=== PATIENT | male | born 1945 | race Caucasian/White ===

== ENCOUNTER 2016-10-28 21:59 | Inpatient (IN) | END 2016-11-03 13:15 | disposition home or self-care (01) | DRG 193 | LOC: ED 21:59 → ICU 10-29 03:32 | PROVIDERS: ADMIT Internal Medicine; ATTEND Internal Medicine ==

== ENCOUNTER 2021-05-16 14:39 | Inpatient (IN) ==
--- NOTE | 2021-05-16 14:42 | Emergency Department Note ---
HPI General Chief complaint: Rectal Bleed Stated complaint: Dark stools Time Seen by Provider: 05/16/21 14:42 Source: patient, family and old records reviewed Mode of arrival: wheelchair Limitations: no limitations History of Present Illness HPI Narrative: 75-year-old male with past medical history of bladder cancer and right nephrostomy tube, afib on warfarin, and CKD presenting with dark stools. Patient states his stools have been dark for the past few days. Over the last 2 weeks he has also had multiple falls and was seen in the emergency department on 05/08/2021. He had a CT of the brain which showed no acute findings and a CT of the abdomen which showed the known bladder CA and also a retroperitoneal soft tissue mass. Patient has not taken his warfarin in a few days because his last INR was 5.0. Patient endorses generalized weakness but has no other complaints at this time. Denies chest pain, shortness of breath, abdominal pain, or vomiting. He is currently on Levaquin for UTI. Denies any prior history of GI bleeding. No known history of cirrhosis or alcohol abuse. No recent increased NSAID use or steroids. Related Data Home Medications Medication Instructions Recorded Confirmed atorvastatin 40 mg tablet 80 mg PO HS 11/21/15 05/16/21 chlorthalidone 25 mg tablet 25 mg PO QDAY 10/08/20 05/16/21 metoprolol succinate 25 mg 25 mg PO QDAY 10/08/20 05/16/21 tablet,extended release 24 hr spironolactone 25 mg tablet 25 mg PO QDAY 10/08/20 05/16/21 Previous Rx's Medication Instructions Recorded digoxin 125 mcg (0.125 mg) tablet 125 mcg PO DAILY@1400 #30 tab 11/03/16 magnesium oxide 400 mg (241.3 mg 400 mg PO BID #30 tab 11/03/16 magnesium) tablet warfarin 5 mg tablet (Coumadin) 5 mg PO DAILY #30 tab 11/03/16 levofloxacin 500 mg tablet 500 mg PO Q24H 14 Days #14 tab 05/08/21 Allergies Allergy/AdvReac Type Severity Reaction Status Date / Time No Known Intolerances Allergy Unknown N/A Verified 05/16/21 14:40 Review of Systems ROS ROS Narrative: Narrative: Constitutional: Denies fever or chills ENT ED: Denies throat pain Cardiovascular: Denies chest pain Respiratory: Denies shortness of breath or cough Gastrointestinal: Reports melena; Denies abdominal pain, nausea, vomiting, diarrhea or hematemesis Genitourinary: Denies dysuria or hematuria Musculoskeletal: Denies back pain or joint swelling Integumentary: Denies rash Neurological: Reports weakness; Denies headache or dizziness Psychiatric: Denies anxiety Endocrine: Reports fatigue Hematological/Lymphatic: Reports easy bruising PFSH Narrative Patient History Narrative: Narrative: Medical/Surgical/Family History All Active Problems (Updated 05/16/21 @ 17:06 by Timothy Emery MD) Bladder cancer (Chronic) Hematuria (Chronic) Benign localized hyperplasia of prostate without urinary obstruction (Chronic) Nocturia (Chronic) Scrotal swelling (Chronic) History of testicular mass (Chronic) History of renal calculi (Chronic) Essential hypertension (Chronic) Encounter for preventative adult health care examination (Chronic) Groin swelling (Chronic) Scrotal mass (Chronic) Hepatic cyst (Chronic) Kidney lesion (Chronic) Bladder filling defect (Chronic) Inguinal hernia (Chronic) Acute retention of urine (Acute) Urinary tract infection (Acute) History of CT scan of abdomen (Chronic 07/01/06) History of chest x-ray (Chronic 06/30/06) Gross hematuria (Chronic 06/30/06) History of CT scan of abdomen (Chronic 10/17/08) Left bundle branch block (Chronic) Abnormal EKG (Chronic) History of tobacco use (Chronic) Atrial fibrillation (Acute) Finger pain, left (Acute) Hydronephrosis due to obstruction of ureteral orifice (Acute) Altered mental status (Acute) Hydrocele (Acute) CKD (chronic kidney disease) stage 3, GFR 30-59 ml/min (Acute) Finger laceration (Acute) Acute right flank pain (Acute) Bladder cancer (Acute) Right lateral abdominal pain (Acute) Hydronephrosis (Acute) Hydronephrosis, right (Acute) Right flank pain (Acute) Pyelonephritis of right kidney (Acute) Anorexia (Acute) Weight loss, unintentional (Acute) Fall (Acute) Chronic anticoagulation (Acute) Weakness (Acute) Bacterial UTI (Acute) Hematochezia (Acute) Dizziness (Acute) Acute upper GI hemorrhage (Acute) Medical History Abnormal EKG Acute retention of urine Benign localized hyperplasia of prostate without urinary obstruction Bladder cancer Bladder filling defect Multiple-adherent to bladder wall Encounter for preventative adult health care examination Essential hypertension Finger pain, left Groin swelling Right Gross hematuria (06/30/06) Hematuria Hepatic cyst Simple History of chest x-ray (06/30/06) History of CT scan of abdomen (07/01/06) History of CT scan of abdomen (10/17/08) History of renal calculi History of testicular mass History of tobacco use Inguinal hernia Fat containing-Right. Partially fatty and partially solid 2.7 x 4.6 Kidney lesion Mid pole of right kidney, 6 x 10 mm - hypodense Left bundle branch block Nocturia Scrotal mass Scrotal swelling Urinary tract infection Surgical History History of cataract surgery History of cystoscopy with Resection of Tumor Hx of transurethral destruction of bladder lesion (07/06/06) Hx of transurethral destruction of bladder lesion (10/23/08) Family History Father Heart attack Other Family history of kidney stones Hypertension Social History Smoking Status: Former smoker Alcohol Intake Frequency: 0-2 drinks per day Substance Use: does not use Exam Narrative Narrative: Narrative: General Limitations: no limitations General appearance: Present alert, in no apparent distress and other (Appears generally weak) Head Head: Present atraumatic and normocephalic Eye Eye: Present normal appearance, PERRL and EOMI; Absent scleral icterus or conjunctival injection ENT ENT: Present mucous membranes moist Neck Neck: Present normal inspection, full ROM and trachea midline; Absent meningismus or lymphadenopathy Chest Chest: Present symmetric chest wall rise Respiratory Respiratory: Present normal lung sounds bilaterally; Absent respiratory distress, wheezes, stridor, accessory muscle use or prolonged expiratory phase Cardiovascular Cardiovascular: Present regular rate and irregular rhythm; Absent systolic murmur or diastolic murmur Adbominal Abdominal: Present soft; Absent distention, tenderness, guarding, rebound, rigidity or organomegaly Rectal Rectal: Present normal rectal tone, heme (+) stool and black stool; Absent hemorrhoids or tenderness Extremities Extremities: Present normal inspection; Absent pretibial edema Back Back: Present other (Right nephrostomy tube present and draining dark urine); Absent CVA tenderness (R) or CVA tenderness (L) Neurological Neurological: Present alert, oriented X3 and CN II-XII intact; Absent motor sensory deficit Psychiatric Psychiatric: Present normal affect and normal mood Skin Skin: Present warm (WNL) and dry Course Consultations Consultation #1: Dr. Gray, general surgery Time: 16:23 Consultation #2: Dr. Carreon, hospitalist Time: 16:47 Vital Signs Vital signs: Vital Signs Temperature 97.5 F 05/16/21 14:40 Pulse Rate 86 05/16/21 14:40 Respiratory Rate 16 05/16/21 14:40 Blood Pressure 157/74 05/16/21 14:40 Pulse Oximetry (%) 99 05/16/21 14:40 Temperature 97.5 F 05/16/21 14:40 Pulse Rate 90 05/16/21 16:42 Respiratory Rate 17 05/16/21 16:42 Blood Pressure 114/59 05/16/21 16:42 Pulse Oximetry (%) 96 05/16/21 16:42 MDM MDM Narrative Medical decision making narrative: 75-year-old male presenting with dark stools. Vital signs are stable, he is not hypotensive. He does have melanotic stool on exam that is hemoccult positive. EKG shows afib with left bundle branch block, which has been present in the past. Will obtain labs, type and screen, and reevaluate. 1630: Labs notable for hemoglobin of 9.5 which is down from his baseline around 13 or 14. Lactate is normal. INR is improved at 1.2. 80mg IV Protonix and 1g IV Rocephin ordered. I spoke with Dr. Gray who is willing to consult on this patient for an upper endoscopy. Will plan to admit for serial hemoglobin levels and management of his upper GI bleed. 1647: Patient discussed with Dr. Carreon who will admit. Lab Data Lab results reviewed: Yes I reviewed the patient's lab results. Result diagrams: 05/16/21 14:53 05/16/21 14:53 Labs: Lab Results 05/16/21 05/16/21 05/16/21 Range/Units 14:53 14:53 14:53 WBC 14.4 H (4.5-11.0) K/mcL RBC 3.37 L (4.63-6.08) M/mcL Hgb 9.5 L (13.7-17.5) g/dL Hct 30.3 L (40.1-51.0) % MCV 89.9 (80.0-100.0) fL MCH 28.2 (26.0-34.0) pg MCHC 31.4 (31.0-36.0) g/dL RDW 17.8 H (11.5-14.5) % Plt Count 542 H (140-440) K/mcL MPV 10.0 (7.4-10.4) fL Neut % (Auto) 76.3 (38.0-78.0) % Lymph % (Auto) 15.0 L (15.5-49.0) % Menard % (Auto) 8.0 (1.0-12.0) % Eos % (Auto) 0.4 (0.0-7.0) % Baso % (Auto) 0.3 (0.0-2.0) % Lymph # (Auto) 2.16 (1.50-4.80) K/mcL Menard # (Auto) 1.16 H (0.10-0.90) K/mcL Eos # (Auto) 0.06 (0.00-0.70) K/mcL Baso # (Auto) 0.05 (0.00-0.30) K/mcL Absolute Neutrophils 11.00 H (1.80-8.00) K/mcL PT 16.2 H (11.9-14.5) sec INR 1.2 H (0.9-1.1) APTT 29.9 (20.0-37.0) sec VBG Lactic Acid (0.5-2.0) mmol/L Sodium 137 (133-145) mmol/L Potassium 3.4 (3.3-5.1) mmol/L Chloride 97 (96-108) mmol/L Carbon Dioxide 26 (22-30) mmol/L Anion Gap 14.0 (8.0-16.0) BUN 19 (8-23) mg/dL Creatinine 1.4 H (0.7-1.2) mg/dL GFR Calculation 48 Glucose 99 (70-105) mg/dL Calcium 9.3 (8.6-10.4) mg/dL Total Bilirubin 0.4 (0.1-1.0) mg/dL AST 21 (<40) U/L ALT 23 (<40) U/L Alkaline Phosphatase 116 (39-117) U/L Total Protein 7.0 (5.9-8.4) gm/dL Albumin 3.6 (3.2-5.2) gm/dL Globulin 3.4 (2.2-3.7) gm/dL Albumin/Globulin Ratio 1.1 (1.0-2.3) 05/16/21 Range/Units 15:04 WBC (4.5-11.0) K/mcL RBC (4.63-6.08) M/mcL Hgb (13.7-17.5) g/dL Hct (40.1-51.0) % MCV (80.0-100.0) fL MCH (26.0-34.0) pg MCHC (31.0-36.0) g/dL RDW (11.5-14.5) % Plt Count (140-440) K/mcL MPV (7.4-10.4) fL Neut % (Auto) (38.0-78.0) % Lymph % (Auto) (15.5-49.0) % Menard % (Auto) (1.0-12.0) % Eos % (Auto) (0.0-7.0) % Baso % (Auto) (0.0-2.0) % Lymph # (Auto) (1.50-4.80) K/mcL Menard # (Auto) (0.10-0.90) K/mcL Eos # (Auto) (0.00-0.70) K/mcL Baso # (Auto) (0.00-0.30) K/mcL Absolute Neutrophils (1.80-8.00) K/mcL PT (11.9-14.5) sec INR (0.9-1.1) APTT (20.0-37.0) sec VBG Lactic Acid 1.8 (0.5-2.0) mmol/L Sodium (133-145) mmol/L Potassium (3.3-5.1) mmol/L Chloride (96-108) mmol/L Carbon Dioxide (22-30) mmol/L Anion Gap (8.0-16.0) BUN (8-23) mg/dL Creatinine (0.7-1.2) mg/dL GFR Calculation Glucose (70-105) mg/dL Calcium (8.6-10.4) mg/dL Total Bilirubin (0.1-1.0) mg/dL AST (<40) U/L ALT (<40) U/L Alkaline Phosphatase (39-117) U/L Total Protein (5.9-8.4) gm/dL Albumin (3.2-5.2) gm/dL Globulin (2.2-3.7) gm/dL Albumin/Globulin Ratio (1.0-2.3) EKG Data EKG #1: EKG attestation: Yes I reviewed and interpreted this EKG. and Yes There are no EKG findings of acute coronary syndrome EKG results narrative: Atrial fibrillation at 89 bpm. Left bundle branch block noted. LBBB was not present on his EKG from 8 days ago but has been present on multiple EKGs prior to that. No ST elevation or depression. Interpretation: no acute changes Discharge Plan Patient/Caregiver Discharge Instructions Pt seen by SCIENTIST ENGINEER/PA only: No Clinical Impression: Acute upper GI hemorrhage Patient Disposition: Xfer As Inpt ([facility]) Follow up with: Danae Cerna MD [Primary Care Provider] - Prescriptions: No Action atorvastatin 40 MG tablet 80 mg PO HS 0RF magnesium oxide 400 MG tablet 400 mg PO BID Qty: 30 0RF digoxin 125 MCG tablet 125 mcg PO DAILY@1400 Qty: 30 0RF warfarin [Coumadin] 5 MG tablet 5 mg PO DAILY Qty: 30 0RF chlorthalidone 25 mg Tablet 25 mg PO QDAY 0RF spironolactone 25 mg Tablet 25 mg PO QDAY 0RF metoprolol succinate 25 mg tablet extended release 24 hr 25 mg PO QDAY 0RF levofloxacin 500 mg tablet 500 mg PO Q24H 14 Days Qty: 14 0RF Rx Instructions: Monitor INR closely while on Levaquin.
[2021-05-16] MEDS ORDERED: 0.9 % SODIUM CHLORIDE 250 ML IV SCH ×3 (15:00→23:00)
[2021-05-16 15:58] LABS: Basophils # (Auto) 0.05 K/mcL (0.00-0.30); Basophils % (Auto) 0.3 % (0.0-2.0); Eosinophils # (Auto) 0.06 K/mcL (0.00-0.70); Eosinophils % (Auto) 0.4 % (0.0-7.0); Hematocrit 30.3 % (40.1-51.0); Hemoglobin 9.5 g/dL (13.7-17.5); Lymphocytes # (Auto) 2.16 K/mcL (1.50-4.80); Mean Cell Volume 89.9 fL (80.0-100.0); Mean Corpuscular HGB Conc 31.4 g/dL (31.0-36.0); Monocytes # (Auto) 1.16 K/mcL (0.10-0.90); Neutrophils % (Auto) 76.3 % (38.0-78.0); Platelet Count 542 K/mcL (140-440); RBC 3.37 M/mcL (4.63-6.08); Red Cell Distribution Width 17.8 % (11.5-14.5); WBC 14.4 K/mcL (4.5-11.0)
[2021-05-16 16:05] LABS: Partial Thromboplastin Time 29.9 sec (20.0-37.0)
[2021-05-16 16:06] LABS: INR 1.2 (0.9-1.1); Prothrombin Time 16.2 sec (11.9-14.5)
[2021-05-16 16:15] LABS: ALT/SGPT 23 U/L (<40); AST/SGOT 21 U/L (<40); Albumin 3.6 gm/dL (3.2-5.2); Albumin/Globulin Ratio 1.1 (1.0-2.3); Alkaline Phosphatase 116 U/L (39-117); Bilirubin,Total 0.4 mg/dL (0.1-1.0); Blood Urea Nitrogen 19 mg/dL (8-23); Calcium 9.3 mg/dL (8.6-10.4); Carbon Dioxide 26 mmol/L (22-30); Chloride 97 mmol/L (96-108); Globulin 3.4 gm/dL (2.2-3.7); Glomerular Filtration Rate 48; Glucose 99 mg/dL (70-105)
[2021-05-16] MEDS ORDERED: cefTRIAXone 1 GM VIAL IV ONE (16:25)
[2021-05-16] MEDS ORDERED: PANTOPRAZOLE 40 MG VIAL IV ONE (16:25)
--- NOTE | 2021-05-16 16:57 | Internal Med History&Physical ---
HPI History of Present Illness Patient information: Note initiated : 05/16/21 at 4:53 pm Service Date, if different from initiated Date: [] Patient: Sky Christensen 75 y/o M admitted on for Dark stools. Chief Complaint: [] Chief complaint: Melena History of present illness: Mr. Christensen is a 75 year old male atrial fibrillation anticoagulated with Coumadin, CAD, HFrEF, diastolic dysfunction, CKD 3a, bladder cancer complicated by right hydronephrosis s/p recent nephrostomy tube placement who presented to the emergency department for dark tarry stools for about 5 days. The patient was recently started on levofloxacin for UTI, urine culture grew Enterobacter cloacae sensitive to levofloxacin. On 05/08/2021 the patient was found to have an INR of 5.0 and told to hold Coumadin which he did. The patient was seen by urology in clinic today and referred to the emergency department due to concerns that levofloxacin may interact with Coumadin causing elevation of INR. Additionally, the patient has been feeling lightheaded recently and experiencing chills and night sweats. In the emergency department the patient had 9.5, down 1013.1 on 05/08/2021 and an INR of 1.2. The patient had leukocytosis of 14.4. His renal function was stable with a creatinine of 1.4. Additional testing with [facility] rapid antigen was positive for Covid. The patient says that his Covid type symptoms of lightheadedness, fatigue, chills and sweats started about 7 days ago. The patient has not been vaccinated for COVID. There might be a temporal relationship between the patient's COVID illness and coagulopathy secondary to Coumadin. It sounds like the patient started levofloxacin after he was found to have an INR of 5.0. The patient says that he was recently taking a significant amount of Aleve for back pain related to the nephrostomy tube. He also took 2 doses of aspirin because he was no longer taking Coumadin. The patient says that he was prescribed Eliquis but could not afford the medication therefore took aspirin instead. Discussed the plan of care which includes Protonix IV, endoscopy, monitoring of hemoglobin and possible red blood cell transfusions. We also discussed CODE STATUS, the patient wishes to be DNR. The patient has been considering hospice but has not come to a decision yet. All questions answered to the best of my ability. Review of systems Constitutional: Positive for fever and fatigue Eyes: no vision changes or pain Cardiovascular: no chest pain, no palpitations Respiratory: no cough or dyspnea Gastrointestinal: Positive for melena, no abdominal pain Genitourinary: Positive for nephrostomy tube, no dysuria or difficulty voiding Musculoskeletal: No arthralgias Integumentary: no skin lesion or wound Neurological: no focal weakness or numbness Psychiatric: no anxiety or depression Physical exam Head: Atraumatic, normal inspection. Eyes: normal appearance, no scleral icterus. Neck: full ROM Respiratory: no respiratory distress. Cardiovascular: normal rate and rhythm, S1, S2. GI/Abdominal: soft, nontender, no guarding. : Right nephrostomy tube draining concentrated urine into collection bag. Extremities: full range of motion, nontender. Neurological: CN II-XII intact, intact motor, intact sensation. Psychiatric: normal mood. Skin: warm, normal color PFSH PFSH All Active Problems (Updated 05/16/21 @ 17:06 by Timothy Emery MD) Bladder cancer (Chronic) Hematuria (Chronic) Benign localized hyperplasia of prostate without urinary obstruction (Chronic) Nocturia (Chronic) Scrotal swelling (Chronic) History of testicular mass (Chronic) History of renal calculi (Chronic) Essential hypertension (Chronic) Encounter for preventative adult health care examination (Chronic) Groin swelling (Chronic) Scrotal mass (Chronic) Hepatic cyst (Chronic) Kidney lesion (Chronic) Bladder filling defect (Chronic) Inguinal hernia (Chronic) Acute retention of urine (Acute) Urinary tract infection (Acute) History of CT scan of abdomen (Chronic 07/01/06) History of chest x-ray (Chronic 06/30/06) Gross hematuria (Chronic 06/30/06) History of CT scan of abdomen (Chronic 10/17/08) Left bundle branch block (Chronic) Abnormal EKG (Chronic) History of tobacco use (Chronic) Atrial fibrillation (Acute) Finger pain, left (Acute) Hydronephrosis due to obstruction of ureteral orifice (Acute) Altered mental status (Acute) Hydrocele (Acute) CKD (chronic kidney disease) stage 3, GFR 30-59 ml/min (Acute) Finger laceration (Acute) Acute right flank pain (Acute) Bladder cancer (Acute) Right lateral abdominal pain (Acute) Hydronephrosis (Acute) Hydronephrosis, right (Acute) Right flank pain (Acute) Pyelonephritis of right kidney (Acute) Anorexia (Acute) Weight loss, unintentional (Acute) Fall (Acute) Chronic anticoagulation (Acute) Weakness (Acute) Bacterial UTI (Acute) Hematochezia (Acute) Dizziness (Acute) Acute upper GI hemorrhage (Acute) Medical History Abnormal EKG Acute retention of urine Benign localized hyperplasia of prostate without urinary obstruction Bladder cancer Bladder filling defect Multiple-adherent to bladder wall Encounter for preventative adult health care examination Essential hypertension Finger pain, left Groin swelling Right Gross hematuria (06/30/06) Hematuria Hepatic cyst Simple History of chest x-ray (06/30/06) History of CT scan of abdomen (07/01/06) History of CT scan of abdomen (10/17/08) History of renal calculi History of testicular mass History of tobacco use Inguinal hernia Fat containing-Right. Partially fatty and partially solid 2.7 x 4.6 Kidney lesion Mid pole of right kidney, 6 x 10 mm - hypodense Left bundle branch block Nocturia Scrotal mass Scrotal swelling Urinary tract infection Surgical History History of cataract surgery History of cystoscopy with Resection of Tumor Hx of transurethral destruction of bladder lesion (07/06/06) Hx of transurethral destruction of bladder lesion (10/23/08) Family History Father Heart attack Other Family history of kidney stones Hypertension Social History marital status: single occupational status: retired smoking status: Former smoker pack-years: 60 alcohol intake frequency: 0-2 drinks per day substance use type: does not use MEDS/ALLERGIES Home Medications and Allergies Home Medications Medication Instructions Recorded Confirmed Type digoxin 125 mcg (0.125 mg) tablet 125 mcg PO DAILY@1400 #30 tab 11/03/16 05/16/21 Rx magnesium oxide 400 mg (241.3 mg 400 mg PO BID #30 tab 11/03/16 05/16/21 Rx magnesium) tablet warfarin 5 mg tablet (Coumadin) 5 mg PO DAILY #30 tab 11/03/16 05/16/21 Rx chlorthalidone 25 mg tablet 25 mg PO QDAY 10/08/20 05/16/21 History spironolactone 25 mg tablet 25 mg PO QDAY 10/08/20 05/16/21 History levofloxacin 500 mg tablet 500 mg PO Q24H 14 Days #14 tab 05/08/21 05/16/21 Rx atorvastatin 80 mg tablet 1 tab PO QDAY 05/16/21 05/16/21 History metoprolol tartrate 25 mg tablet 1 tab PO QDAY 05/16/21 05/16/21 History Allergies Allergy/AdvReac Type Severity Reaction Status Date / Time No Known Intolerances Allergy Unknown N/A Verified 05/16/21 14:40 EXAM Constitutional Vitals: Temp Pulse Resp BP Pulse Ox 97.5 F 90 17 114/59 96 05/16/21 14:40 05/16/21 16:42 05/16/21 16:42 05/16/21 16:42 05/16/21 16:42 DATA Data Completed and Pending Labs: Labs from last 24 hours 05/16/21 05/16/21 05/16/21 15:04 14:53 14:53 WBC 14.4 H RBC 3.37 L Hgb 9.5 L Hct 30.3 L MCV 89.9 MCH 28.2 MCHC 31.4 RDW 17.8 H Plt Count 542 H MPV 10.0 Neut % (Auto) 76.3 Lymph % (Auto) 15.0 L Bradley % (Auto) 8.0 Eos % (Auto) 0.4 Baso % (Auto) 0.3 Lymph # (Auto) 2.16 Bradley # (Auto) 1.16 H Eos # (Auto) 0.06 Baso # (Auto) 0.05 Absolute Neutrophils 11.00 H PT INR APTT VBG Lactic Acid 1.8 Sodium 137 Potassium 3.4 Chloride 97 Carbon Dioxide 26 Anion Gap 14.0 BUN 19 Creatinine 1.4 H GFR Calculation 48 Glucose 99 Calcium 9.3 Total Bilirubin 0.4 AST 21 ALT 23 Alkaline Phosphatase 116 Total Protein 7.0 Albumin 3.6 Globulin 3.4 Albumin/Globulin Ratio 1.1 05/16/21 14:53 WBC RBC Hgb Hct MCV MCH MCHC RDW Plt Count MPV Neut % (Auto) Lymph % (Auto) Bradley % (Auto) Eos % (Auto) Baso % (Auto) Lymph # (Auto) Bradley # (Auto) Eos # (Auto) Baso # (Auto) Absolute Neutrophils PT 16.2 H INR 1.2 H APTT 29.9 VBG Lactic Acid Sodium Potassium Chloride Carbon Dioxide Anion Gap BUN Creatinine GFR Calculation Glucose Calcium Total Bilirubin AST ALT Alkaline Phosphatase Total Protein Albumin Globulin Albumin/Globulin Ratio A/P Narrative A/P Narrative: Assessment: 75 year old male with a history of atrial fibrillation anticoagulated with Coumadin, CAD, HFrEF, diastolic dysfunction, CKD 3a, bladder cancer complicated by right hydronephrosis s/p nephrostomy tube placement in February 2021 now admitted for acute on chronic anemia secondary to a GI bleed. INR at admission was 1.2 reflecting that the patient had recently been holding Coumadin for supratherapeutic INR of 5. In the ED, the patient tested positive for Covid by [facility] rapid antigen test. The patient has not been vaccinated for COVID. #Acute on chronic anemia #Probable upper GI bleed -Branson-Blatchford Score of 11 #Non-severe COVID illness #Generalized weakness #Leukocytosis #Recent UTI on Levaquin #HFrEF 25-30% #Atrial fibrillation recently on Coumadin #Chronic kidney disease stage 3a #Coronary artery disease #S/p nephrostomy tube placement for right hydronephrosis #Bladder cancer Plan -Protonix IV BID. -Trend hemoglobin, transfuse pRBC for hemoglobin < 7 or symptomatic anemia. -Type and Screen -H Pylori stool antigen -Continue holding Coumadin, monitor INR. -Chest xray to evaluate for infiltrates d/t Covid. -Monitor of respiratory status. -IV fluid, monitor volume status. -Renally dosed Levofloxacin IV Q48 hrs-the patient says he was supposed to complete 10 days of treatment. -Home medication reconciliation, resume important medications. 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 -Clear liquid diet/NPO at midnight. -DVT ppx: SCD for now due to bleeding. -Code status: DNR -Disposition: home when stable, the patient has been considering hospice. Time Spent With Patient Time: Total time spent is greater than 50% in coordination of care (as documented) at patient's floor/unit and/or counseling patient:
--- NOTE | 2021-05-16 18:46 | XRay Report ---
INDICATION: JENNIE positive for COVID, evaluate for infiltrates TECHNIQUE: AP portable chest x-ray COMPARISON: Previous chest x-ray dated 09/30/2020 FINDINGS: Lungs:Lungs are negative. No focal pulmonary parenchymal infiltrate or mass Heart, vascular:No significant cardiomegaly. Pulmonary vascularity is normal. No pulmonary edema or pulmonary congestion Mediastinum, amparo:No mediastinal widening. No hilar mass Pleura:No pleural fluid. No pleural-based mass or calcification Skeletal:Negative. IMPRESSION: Negative AP chest x-ray Interpreted and Authenticated by: Earnest Dale 05/16/21
[2021-05-16] MEDS ORDERED: LACTULOSE 20 GM/30 ML ORAL.SOL PO PRN (19:19)
[2021-05-16] MEDS ORDERED: SENNOSIDES 1 TABLET PO PRN (19:19)
[2021-05-16] MEDS ORDERED: ACETAMINOPHEN 325 MG TABLET PO PRN (19:19)
[2021-05-16] MEDS ORDERED: ONDANSETRON 4 MG/2 ML VIAL IV PRN (19:19)
[2021-05-16] MEDS: 0.9 % SODIUM CHLORIDE 1,000 ML IV SCH (20:09)
[2021-05-16] MEDS: PANTOPRAZOLE 40 MG VIAL IV SCH (20:13)
[2021-05-16] MEDS: DOCUSATE SODIUM 100 MG CAPSULE PO SCH (20:17)
[2021-05-16] MEDS: LEVOFLOXACIN 750 MG/150 ML BAG IV SCH (20:18)
[2021-05-16 20:33] LABS: Appearance,Urine Clear (Clear); Bilirubin,Urine Negative (Negative); Color,Urine Yellow; Culture Indicated,Urine No; Glucose,Urine (UA) Negative (Negative); Ketones,Urine Negative (Negative); Leukocyte Esterase,Urine Negative /uL (Negative); Mucus,Urine MOD /hpf; Nitrate,Urine Negative (Negative); PH,Urine 7.5 (5.0-9.0); Urine Blood Negative ery/mcL (Negative); Urine Hyaline Cast 8 /lph (0-2); Urine RBC 1 /hpf (0-3); Urine Squamous Epithelial Cell < 1 /hpf (0-4); Urine WBC 2 /hpf (0-4); Urobilinogen,Urine Normal
[2021-05-16] MEDS: 0.9 % SODIUM CHLORIDE 10 ML SYRINGE IV SCH (22:00)
[2021-05-17] MEDS ORDERED: POTASSIUM CHLORIDE 20 MEQ TABLET PO ONE ×2 (00:16→00:49)
[2021-05-17] MEDS ORDERED: POTASSIUM CHLORIDE 20 MEQ PACKET ONE (00:45)
[2021-05-17] MEDS: 0.9 % SODIUM CHLORIDE 10 ML SYRINGE IV SCH ×3 (05:41→20:44)
[2021-05-17 07:04] LABS: INR 1.3 (0.9-1.1); Prothrombin Time 16.9 sec (11.9-14.5)
[2021-05-17 07:16] LABS: Basophils # (Auto) 0.04 K/mcL (0.00-0.30); Basophils % (Auto) 0.4 % (0.0-2.0); Eosinophils # (Auto) 0.05 K/mcL (0.00-0.70); Eosinophils % (Auto) 0.5 % (0.0-7.0); Hematocrit 30.9 % (40.1-51.0); Hemoglobin 10.2 g/dL (13.7-17.5); Lymphocytes # (Auto) 1.23 K/mcL (1.50-4.80); Lymphocytes % (Auto) 12.8 % (15.5-49.0); Mean Cell Volume 87.5 fL (80.0-100.0); Mean Platelet Volume 9.6 fL (7.4-10.4); Monocytes # (Auto) 0.81 K/mcL (0.10-0.90); Monocytes % (Auto) 8.4 % (1.0-12.0); Neutrophils % (Auto) 77.9 % (38.0-78.0); Platelet Count 330 K/mcL (140-440); RBC 3.53 M/mcL (4.63-6.08); Red Cell Distribution Width 15.9 % (11.5-14.5); WBC 9.6 K/mcL (4.5-11.0)
[2021-05-17 07:23] LABS: ALT/SGPT 16 U/L (<40); AST/SGOT 17 U/L (<40); Albumin 2.8 gm/dL (3.2-5.2); Albumin/Globulin Ratio 0.9 (1.0-2.3); Alkaline Phosphatase 103 U/L (39-117); Bilirubin,Direct 0.2 mg/dL (<0.3); Blood Urea Nitrogen 19 mg/dL (8-23); Calcium 8.7 mg/dL (8.6-10.4); Carbon Dioxide 23 mmol/L (22-30); Chloride 98 mmol/L (96-108); Globulin 3.1 gm/dL (2.2-3.7); Glomerular Filtration Rate 52; Glucose 87 mg/dL (70-105); Lactate Dehydrogenase 232 U/L (135-225); Phosphorous 2.5 mg/dL (2.5-4.5); Triglycerides 103 mg/dL (<150); Uric Acid 7.7 mg/dL (2.5-8.0)
[2021-05-17] MEDS: PANTOPRAZOLE 40 MG VIAL IV SCH ×2 (08:21→16:07)
[2021-05-17] MEDS: DOCUSATE SODIUM 100 MG CAPSULE PO SCH ×2 (09:21→20:44)
--- NOTE | 2021-05-17 10:05 | General Surgery Consult Note ---
HPI Data of Consult Consult date: 05/17/21 Requesting physician: Gabriel Carreon Primary Care Provider: Danae Cerna Consult Narrative Patient Information: Note initiated : 05/17/21 at 10:02 am Service Date, if different from initiated Date: [] Patient: Sky Christensen 75 y/o M admitted on 05/16/21 for Dark stools. Chief Complaint: [] Chief complaint: Generalized weakness cc:: 75-year-old male admitted for evaluation of generalized weakness and anemia. Patient has a few day history of dark tarry stools. He has not had any nausea vomiting. He has not had hematemesis or melena or hematochezia. Labs reveal hemoglobin decreased from 13-9.5. He is not had any bleeding since admission. He has been transfused 2 units of blood when his hemoglobin dropped to 8.2. Patient has history of inoperable bladder cancer and a retroperitoneal mass that is probably a malignancy. He has a nephrostomy in his right kidney due to ureteral obstruction probably related to his bladder cancer. . 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 (Chronic) Nocturia (Chronic) Scrotal swelling (Chronic) History of testicular mass (Chronic) History of renal calculi (Chronic) Essential hypertension (Chronic) Encounter for preventative adult health care examination (Chronic) Groin swelling (Chronic) Scrotal mass (Chronic) Hepatic cyst (Chronic) Kidney lesion (Chronic) Bladder filling defect (Chronic) Inguinal hernia (Chronic) Acute retention of urine (Acute) Urinary tract infection (Acute) History of CT scan of abdomen (Chronic 07/01/06) History of chest x-ray (Chronic 06/30/06) Gross hematuria (Chronic 06/30/06) History of CT scan of abdomen (Chronic 10/17/08) Left bundle branch block (Chronic) Abnormal EKG (Chronic) History of tobacco use (Chronic) Atrial fibrillation (Acute) Finger pain, left (Acute) Hydronephrosis due to obstruction of ureteral orifice (Acute) Altered mental status (Acute) Hydrocele (Acute) CKD (chronic kidney disease) stage 3, GFR 30-59 ml/min (Acute) Finger laceration (Acute) Acute right flank pain (Acute) Bladder cancer (Acute) Right lateral abdominal pain (Acute) Hydronephrosis (Acute) Hydronephrosis, right (Acute) Right flank pain (Acute) Pyelonephritis of right kidney (Acute) Anorexia (Acute) Weight loss, unintentional (Acute) Fall (Acute) Chronic anticoagulation (Acute) Weakness (Acute) Bacterial UTI (Acute) Hematochezia (Acute) Dizziness (Acute) Acute upper GI hemorrhage (Acute) Medical History Abnormal EKG Acute retention of urine Benign localized hyperplasia of prostate without urinary obstruction Bladder cancer Bladder filling defect Multiple-adherent to bladder wall Encounter for preventative adult health care examination Essential hypertension Finger pain, left Groin swelling Right Gross hematuria (06/30/06) Hematuria Hepatic cyst Simple History of chest x-ray (06/30/06) History of CT scan of abdomen (07/01/06) History of CT scan of abdomen (10/17/08) History of renal calculi History of testicular mass History of tobacco use Inguinal hernia Fat containing-Right. Partially fatty and partially solid 2.7 x 4.6 Kidney lesion Mid pole of right kidney, 6 x 10 mm - hypodense Left bundle branch block Nocturia Scrotal mass Scrotal swelling Urinary tract infection Surgical History History of cataract surgery History of cystoscopy with Resection of Tumor Hx of transurethral destruction of bladder lesion (07/06/06) Hx of transurethral destruction of bladder lesion (10/23/08) Family History Father Heart attack Other Family history of kidney stones Hypertension Social History marital status: single occupational status: retired smoking status: Former smoker pack-years: 60 alcohol intake frequency: 0-2 drinks per day substance use type: does not use MEDS/ALLERGIES Home Medications and Allergies Home Medications Medication Instructions Recorded Confirmed Type digoxin 125 mcg (0.125 mg) tablet 125 mcg PO DAILY@1400 #30 tab 11/03/16 05/16/21 Rx magnesium oxide 400 mg (241.3 mg 400 mg PO BID #30 tab 11/03/16 05/16/21 Rx magnesium) tablet warfarin 5 mg tablet (Coumadin) 5 mg PO DAILY #30 tab 11/03/16 05/16/21 Rx chlorthalidone 25 mg tablet 25 mg PO QDAY 10/08/20 05/16/21 History spironolactone 25 mg tablet 25 mg PO QDAY 10/08/20 05/16/21 History levofloxacin 500 mg tablet 500 mg PO Q24H 14 Days #14 tab 05/08/21 05/16/21 Rx Aspirin Childrens 81 mg PO DAILY 05/16/21 05/16/21 History atorvastatin 80 mg tablet 1 tab PO DAILY 05/16/21 05/16/21 History metoprolol tartrate 25 mg tablet 1 tab PO QDAY 05/16/21 05/16/21 History Allergies Allergy/AdvReac Type Severity Reaction Status Date / Time No Known Intolerances Allergy Unknown N/A Verified 05/16/21 14:40 Physical Examination Vital Signs Vital signs: Temp Pulse Resp BP Pulse Ox 98.1 F 70 14 104/39 97 05/17/21 08:01 05/17/21 08:01 05/17/21 08:01 05/17/21 08:01 05/17/21 08:01 General physical appearance General physical exam: moderate distress, cachectic and chronically ill Eyes Eye exam: PERRL and normal ocular movement ENT ENT exam: normal mucosa, no hearing loss and no congestion Head Head exam IM: Present atraumatic, normal inspection and normocephalic Neck Neck exam: no masses, no bruits, trachea midline, no lymphadenopathy and no venous distension Cardiovascular Cardiovascular exam IM: Present normal rate and rhythm, RRR, +S1 and +S2; Absent JVD Respiratory Respiratory exam: normal expansion, normal respiratory effort and clear to auscu ltation Abdomen Abdomen: Present soft and non tender; Absent masses or guarding Genitourinary Genitourinary (Male): Present other (Nephrostomy right kidney posteriorly) Integumentary Integumentary: Present no rash, no growths and no abnormal pigmentation Neurologic Neurologic: Present normal sensation Musculoskeletal Musculoskeletal: Present normal gait and normal posture Psychiatric Psychiatric: Present oriented to time, oriented to person, oriented to place, speech is normal, memory intact and other (Patient has significant depression) Results Labs Result diagrams: 05/17/21 06:00 05/17/21 06:00 Labs: Abnormal lab results 05/16/21 05/16/21 05/16/21 Range/Units 14:53 14:53 14:53 WBC 14.4 H (4.5-11.0) K/mcL RBC 3.37 L (4.63-6.08) M/mcL Hgb 9.5 L (13.7-17.5) g/dL Hct 30.3 L (40.1-51.0) % RDW 17.8 H (11.5-14.5) % Plt Count 542 H (140-440) K/mcL Lymph % (Auto) 15.0 L (15.5-49.0) % Lymph # (Auto) (1.50-4.80) K/mcL [place] # (Auto) 1.16 H (0.10-0.90) K/mcL Absolute Neutrophils 11.00 H (1.80-8.00) K/mcL PT 16.2 H (11.9-14.5) sec INR 1.2 H (0.9-1.1) Sodium (133-145) mmol/L Creatinine 1.4 H (0.7-1.2) mg/dL Lactate Dehydrogenase (135-225) U/L Albumin (3.2-5.2) gm/dL Albumin/Globulin Ratio (1.0-2.3) Urine Protein (Negative) mg/dL Hyaline Casts (0-2) /lph Urine Mucus (None) /hpf 05/16/21 05/16/21 05/17/21 Range/Units 18:55 19:38 06:00 WBC (4.5-11.0) K/mcL RBC 3.53 L (4.63-6.08) M/mcL Hgb 8.2 L 10.2 L (13.7-17.5) g/dL Hct 30.9 L (40.1-51.0) % RDW 15.9 H (11.5-14.5) % Plt Count (140-440) K/mcL Lymph % (Auto) 12.8 L (15.5-49.0) % Lymph # (Auto) 1.23 L (1.50-4.80) K/mcL [place] # (Auto) (0.10-0.90) K/mcL Absolute Neutrophils (1.80-8.00) K/mcL PT (11.9-14.5) sec INR (0.9-1.1) Sodium (133-145) mmol/L Creatinine (0.7-1.2) mg/dL Lactate Dehydrogenase (135-225) U/L Albumin (3.2-5.2) gm/dL Albumin/Globulin Ratio (1.0-2.3) Urine Protein 30 mg/dl A (Negative) mg/dL Hyaline Casts 8 H (0-2) /lph Urine Mucus Mod A (None) /hpf 05/17/21 05/17/21 05/17/21 Range/Units 06:00 06:00 06:00 WBC (4.5-11.0) K/mcL RBC (4.63-6.08) M/mcL Hgb 10.4 L (13.7-17.5) g/dL Hct (40.1-51.0) % RDW (11.5-14.5) % Plt Count (140-440) K/mcL Lymph % (Auto) (15.5-49.0) % Lymph # (Auto) (1.50-4.80) K/mcL [place] # (Auto) (0.10-0.90) K/mcL Absolute Neutrophils (1.80-8.00) K/mcL PT 16.9 H (11.9-14.5) sec INR 1.3 H (0.9-1.1) Sodium 132 L (133-145) mmol/L Creatinine 1.3 H (0.7-1.2) mg/dL Lactate Dehydrogenase 232 H (135-225) U/L Albumin 2.8 L (3.2-5.2) gm/dL Albumin/Globulin Ratio 0.9 L (1.0-2.3) Urine Protein (Negative) mg/dL Hyaline Casts (0-2) /lph Urine Mucus (None) /hpf Diabetes panel 05/16/21 05/17/21 Range/Units 14:53 06:00 Sodium 137 132 L (133-145) mmol/L Potassium 3.4 3.9 (3.3-5.1) mmol/L Chloride 97 98 (96-108) mmol/L Carbon Dioxide 26 23 (22-30) mmol/L BUN 19 19 (8-23) mg/dL Creatinine 1.4 H 1.3 H (0.7-1.2) mg/dL Glucose 99 87 (70-105) mg/dL Calcium 9.3 8.7 (8.6-10.4) mg/dL AST 21 17 (<40) U/L ALT 23 16 (<40) U/L Alkaline Phosphatase 116 103 (39-117) U/L Total Protein 7.0 5.9 (5.9-8.4) gm/dL Albumin 3.6 2.8 L (3.2-5.2) gm/dL Triglycerides 103 (<150) mg/dL Calcium panel 05/16/21 05/17/21 Range/Units 14:53 06:00 Calcium 9.3 8.7 (8.6-10.4) mg/dL Phosphorus 2.5 (2.5-4.5) mg/dL Albumin 3.6 2.8 L (3.2-5.2) gm/dL Pituitary panel 05/16/21 05/17/21 Range/Units 14:53 06:00 Sodium 137 132 L (133-145) mmol/L Potassium 3.4 3.9 (3.3-5.1) mmol/L Chloride 97 98 (96-108) mmol/L Carbon Dioxide 26 23 (22-30) mmol/L BUN 19 19 (8-23) mg/dL Creatinine 1.4 H 1.3 H (0.7-1.2) mg/dL Glucose 99 87 (70-105) mg/dL Calcium 9.3 8.7 (8.6-10.4) mg/dL Adrenal panel 05/16/21 05/17/21 Range/Units 14:53 06:00 Sodium 137 132 L (133-145) mmol/L Potassium 3.4 3.9 (3.3-5.1) mmol/L Chloride 97 98 (96-108) mmol/L Carbon Dioxide 26 23 (22-30) mmol/L BUN 19 19 (8-23) mg/dL Creatinine 1.4 H 1.3 H (0.7-1.2) mg/dL Glucose 99 87 (70-105) mg/dL Calcium 9.3 8.7 (8.6-10.4) mg/dL Total Bilirubin 0.4 1.0 (0.1-1.0) mg/dL AST 21 17 (<40) U/L ALT 23 16 (<40) U/L Alkaline Phosphatase 116 103 (39-117) U/L Total Protein 7.0 5.9 (5.9-8.4) gm/dL Albumin 3.6 2.8 L (3.2-5.2) gm/dL All other labs normal. A/P Assessment and plan (1) Upper GI bleeding: Status: Acute (2) Bladder cancer: Status: Chronic (3) Hydronephrosis due to obstruction of ureteral orifice: Status: Acute (4) CKD (chronic kidney disease) stage 3, GFR 30-59 ml/min: Status: Acute (5) Bladder cancer: Status: Acute (6) Weight loss, unintentional: Status: Acute (7) Chronic anticoagulation: Status: Acute Narrative A/P Narrative: Patient has been counseled for upper endoscopy and treatment as needed His abnormal clotting due to warfarin has been corrected Time Spent With Patient Time: Total time spent is greater than 50% in coordination of care (as documented) at patient's floor/unit and/or counseling patient:
--- NOTE | 2021-05-17 12:02 | Brief Operative Note ---
Brief Operative Note Date of procedure: 05/17/21 Pre-op diagnosis: upper gastrointestinal bleeding;melena Post-op diagnosis: other (upper gastrointestinal bleeding;melena) Procedure: ESOPHAGOGASTRODUODENOSCOPY Grafts/Implants: No Anesthesia: GETA Findings: NORMAL ESOPHAGUS;STOMACH AND DUODENUM TO 4TH PORTION OF DUODENUM NO OLD BLOOD OUT TO DUODENUM Complications: none Surgeon: Georgi Gray Specimens Removed/Pathology: none sent Condition: stable Disposition: ICU
--- NOTE | 2021-05-17 12:34 | Internal Med Progress Note ---
SUBJECTIVE Subjective Patient information: Note initiated : 05/17/21 at 12:34 pm Service Date, if different from initiated Date: [] Patient: Sky Christensen 75 y/o M admitted on 05/16/21 for Dark stools. Chief Complaint: [] Interval history: Mr. Christensen is a 75 year old male atrial fibrillation anticoagulated with Coumadin, CAD, HFrEF, diastolic dysfunction, CKD 3a, bladder cancer complicated by right hydronephrosis s/p recent nephrostomy tube placement who presented to the emergency department for dark tarry stools for about 5 days. The patient was recently started on levofloxacin for UTI, urine culture grew Enterobacter cloacae sensitive to levofloxacin. On 05/08/2021 the patient was found to have an INR of 5.0 and told to hold Coumadin which he did. The patient was seen by urology in clinic today and referred to the emergency department due to concerns that levofloxacin may interact with Coumadin causing elevation of INR. Ad ditionally, the patient has been feeling lightheaded recently and experiencing chills and night sweats. In the emergency department the patient had 9.5, down 1013.1 on 05/08/2021 and an INR of 1.2. The patient had leukocytosis of 14.4. His renal function was stable with a creatinine of 1.4. Additional testing with [facility] rapid antigen was positive for Covid. The patient says that his Covid type symptoms of lightheadedness, fatigue, chills and sweats started about 7 days ago. The patient has not been vaccinated for COVID. There might be a temporal relationship between the patient's COVID illness and coagulopathy secondary to Coumadin. It sounds like the patient started levofloxacin after he was found to have an INR of 5.0. The patient says that he was recently taking a significant amount of Aleve for back pain related to the nephrostomy tube. He also took 2 doses of aspirin because he was no longer taking Coumadin. The patient says that he was prescribed Eliquis but could not afford the medication therefore took aspirin instead. Discussed the plan of care which includes Yandel nix IV, endoscopy, monitoring of hemoglobin and possible red blood cell transfusions. We also discussed CODE STATUS, the patient wishes to be DNR. The patient has been considering hospice but has not come to a decision yet. All questions answered to the best of my ability. 05/17 Received two units of RBC yesterday evening for downtrending hemoglobin and lightheadedness. EGD completed today, no pathology found to explain bleeding. Contineus on room air. Physical exam Head: Atraumatic, normal inspection. Eyes: normal appearance, no scleral icterus. Neck: full ROM Respiratory: no respiratory distress. Cardiovascular: normal rate and rhythm, S1, S2. GI/Abdominal: soft, nontender, no guarding. : Right nephrostomy tube draining concentrated urine into collection bag. Extremities: full range of motion, nontender. Neurological: CN II-XII intact, intact motor, intact sensation. Psychiatric: normal mood. Skin: warm, normal color Constitutional Vitals: Vital Signs Temp Pulse Resp BP Pulse Ox 98.1 F 90 17 112/57 92 05/17/21 12:15 05/17/21 12:20 05/17/21 12:20 05/17/21 12:20 05/17/21 12:20 Period Temp Pulse Resp BP Sys/[place] Pulse Ox Last 24 Hr 97.5 F-99.5 F 55-118 - 60-157/36-85 92-99 Intake and Output 05/16/21 05/17/21 05/17/21 21:59 05:59 13:59 Intake Total 150 996 100 Output Total 25 275 200 Balance 125 721 -100 Weight 74.797 kg Intake & Output: Intake & Output 05/16/21 05/17/21 05/17/21 21:59 05:59 13:59 Intake Total 150 996 100 Output Total 25 275 200 Balance 125 721 -100 Weight 74.797 kg Intake: IV 150 255 100 Sodium Chloride 0.9% 1,000 ml @ 255 50 mls/hr IV .Q20H [facility] Rx#: [id number] Sodium Chloride 0.9% 250 ml @ 100 20 mls/hr IV .[id number] [facility] Rx#: [id number] Blood Product 741 Output: Urine Catheter Amount 25 Void Amount 275 200 Other: Urine Appearance Clear Clear Clear Large Blood Clots Nephrostomy Tube (Right) Clear Clear Clear Urine Color Light Radha Bright Yellow Dark Yellow Nephrostomy Tube (Right) Dark Yellow Dark Yellow Dark Yellow Stool Size Small Stool Color Brown Stool Consistency Normal for Patient OBJ DATA Labs CBC & Chem 7: 05/17/21 06:00 05/17/21 06:00 Labs: Abnormal Lab Results 05/17/21 05/17/21 05/17/21 06:00 06:00 06:00 WBC RBC Hgb 10.4 L Hct RDW Plt Count Lymph % (Auto) Lymph # (Auto) [place] # (Auto) Absolute Neutrophils PT 16.9 H INR 1.3 H Sodium 132 L Creatinine 1.3 H Lactate Dehydrogenase 232 H Albumin 2.8 L Albumin/Globulin Ratio 0.9 L Urine Protein Hyaline Casts Urine Mucus 05/17/21 05/16/21 05/16/21 06:00 19:38 18:55 WBC RBC 3.53 L Hgb 10.2 L 8.2 L Hct 30.9 L RDW 15.9 H Plt Count Lymph % (Auto) 12.8 L Lymph # (Auto) 1.23 L [place] # (Auto) Absolute Neutrophils PT INR Sodium Creatinine Lactate Dehydrogenase Albumin Albumin/Globulin Ratio Urine Protein 30 mg/dl A Hyaline Casts 8 H Urine Mucus Mod A 05/16/21 05/16/21 05/16/21 14:53 14:53 14:53 WBC 14.4 H RBC 3.37 L Hgb 9.5 L Hct 30.3 L RDW 17.8 H Plt Count 542 H Lymph % (Auto) 15.0 L Lymph # (Auto) [place] # (Auto) 1.16 H Absolute Neutrophils 11.00 H PT 16.2 H INR 1.2 H Sodium Creatinine 1.4 H Lactate Dehydrogenase Albumin Albumin/Globulin Ratio Urine Protein Hyaline Casts Urine Mucus Meds: Medications Acetaminophen (Acetaminophen 325 Mg Tablet) 650 mg PO Q6HP PRN; Protocol PRN Reason: Per Pain Protocol/Fever > 101 Docusate Sodium (Docusate Sodium 100 Mg Capsule) 100 mg PO BID [facility] Last Admin: 05/17/21 09:21 Dose: Not Given Documented by: Levofloxacin (Levaquin) 750 mg in 150 mls @ 100 mls/hr IV Q48H [facility] Last Infusion: 05/16/21 21:48 Dose: Infused Documented by: Sodium Chloride (Sodium Chloride 0.9%) 1,000 mls @ 50 mls/hr IV .Q20H [facility] Last Infusion: 05/17/21 05:15 Dose: 50 mls/hr Documented by: Lactulose (Lactulose 20 Gm/30 Ml Oral.Kori) 10 gm PO DAILYP PRN PRN Reason: Constipation Ondansetron HCl (Ondansetron 4 Mg/2 Ml Vial) 4 mg IV Q4HP PRN; Protocol PRN Reason: Nausea And Vomiting Pantoprazole Sodium (Pantoprazole 40 Mg Vial) 40 mg IV BIDAC [facility] Last Admin: 05/17/21 08:21 Dose: 40 mg Documented by: Senna (Sennosides 1 Tablet) 2 tab PO HSP PRN PRN Reason: Constipation Sodium Chloride (0.9 % Sodium Chloride 10 Ml Syringe) 10 ml IV Q8 [facility] Last Admin: 05/17/21 05:41 Dose: 10 ml Documented by: A/P Linda A/P Narrative: Assessment: 75 year old male with a history of atrial fibrillation anticoagulated with Coumadin, CAD, HFrEF, diastolic dysfunction, CKD 3a, bladder cancer complicated by right hydronephrosis s/p nephrostomy tube placement in February 2021 now admitted for acute on chronic anemia secondary to a GI bleed. INR at admission was 1.2 reflecting that the patient had recently been holding Coumadin for supratherapeutic INR of 5. In the ED, the patient tested positive for Covid by [facility] rapid antigen test. The patient has not been vaccinated for COVID. #Acute on chronic anemia #Concern for GI bleed -EGD did not show any evidence of upper GI bleed #Non-severe COVID illness #Generalized weakness #Recent UTI on Levaquin #HFrEF 25-30% #Atrial fibrillation recently on Coumadin #Chronic kidney disease stage 3a #Coronary artery disease #S/p nephrostomy tube placement for right hydronephrosis #Bladder cancer Plan -Protonix IV BID. -Monitor hemoglobin, transfuse pRBC for hemoglobin < 7 or symptomatic anemia. -Monitor INR. -Monitor respiratory status. -Renally dosed Levofloxacin IV Q48 hrs-the patient says he was supposed to complete 10 days of treatment. -Resume home Atorvastatin, Toprol, digoxin,. -Holding home Chlorthalidone, Spironolactone, Coumadin for now. 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 -Surgery consulted for EGD. -Diet per surgery. -DVT ppx: SCD for now due to bleeding. -Code status: DNR -Disposition: home when stable, the patient has been considering hospice. Time Spent With Patient Time: Total time spent is greater than 50% in coordination of care (as documented) at patient's floor/unit and/or counseling patient: QUALITY VTE Deep Vein Thrombosis/Pulmonary Embolism Present on Admission: No
[2021-05-17] MEDS ORDERED: DIGOXIN 125 MCG TABLET PO SCH (14:00)
--- NOTE | 2021-05-17 16:50 | Discharge Summary ---
Discharge Provider Provider Patient information: Note initiated : 05/17/21 at 4:48 pm Service Date, if different from initiated Date: [] Patient: Sky Christensen 75 y/o M admitted on 05/16/21 for Dark stools. Chief Complaint: [] Date of admission: 05/16/21 18:47 Discharge date: 05/17/21 Primary care physician: Danae Cerna Consults: 05/16/21 Consult to Physician [CONS] Stat Comment: Consulting Provider: Gabriel Carreon Reason For Exam: Physician to Consult Consult to Physician [CONS] Stat Comment: Consulting Provider: Georgi Gray Reason For Exam: Physician to Consult 05/16/21 19:19 Consult to Physician [CONS] Stat Comment: Consulting Provider: Georgi Gray Reason For Exam: Physician to Consult Discharge Meds Discharge Medications Home Medications digoxin 125 mcg (0.125 mg) tablet 125 mcg PO DAILY@1400 #30 tab 11/03/16 [Rx Confirmed 05/16/21 Last Taken 05/16/21 14:00] magnesium oxide 400 mg (241.3 mg magnesium) tablet 400 mg PO BID #30 tab 11/03/16 [Rx Confirmed 05/16/21 Last Taken 05/16/21 09:00] warfarin 5 mg tablet (Coumadin) 5 mg PO DAILY #30 tab 11/03/16 [Rx Confirmed 05/16/21 Last Taken 05/11/21 09:00] chlorthalidone 25 mg tablet 25 mg PO QDAY 10/08/20 [History Confirmed 05/16/21 Last Taken 05/16/21 09:00] spironolactone 25 mg tablet 25 mg PO QDAY 10/08/20 [History Confirmed 05/16/21 Last Taken 05/16/21 09:00] levofloxacin 500 mg tablet 500 mg PO Q24H 14 Days #14 tab 05/08/21 [Rx Confirmed 05/16/21 Last Taken 05/16/21 09:00] Aspirin Childrens 81 mg PO DAILY 05/16/21 [History Confirmed 05/16/21 Last Taken 05/16/21 09:00] atorvastatin 80 mg tablet 1 tab PO DAILY 05/16/21 [History Confirmed 05/16/21 Last Taken 05/16/21 15:30] metoprolol tartrate 25 mg tablet 1 tab PO QDAY 05/16/21 [History Confirmed 05/16/21 Last Taken 05/16/21 09:00] COURSE Hospital Course Hospital course: Mr. Christensen is a 75 year old male atrial fibrillation anticoagulated with Coumadin, CAD, HFrEF, diastolic dysfunction, CKD 3a, bladder cancer complicated by right hydronephrosis s/p recent nephrostomy tube placement who presented to the emergency department for dark tarry stools for about 5 days. The patient was recently started on levofloxacin for UTI, urine culture grew Enterobacter cloacae sensitive to levofloxacin. On 05/08/2021 the patient was found to have an INR of 5.0 and told to hold Coumadin which he did. The patient was seen by urology in clinic today and referred to the emergency department due to concerns that levofloxacin may interact with Coumadin causing elevation of INR. Additionally, the patient has been feeling lightheaded recently and experiencing chills and night sweats. In the emergency department the patient had 9.5, down 1013.1 on 05/08/2021 and an INR of 1.2. The patient had leukocytosis of 14.4. His renal function was stable with a creatinine of 1.4. Additional testing with Tatiana rapid antigen was positive for Covid. The patient says that his Covid type symptoms of lightheadedness, fatigue, chills and sweats started about 7 days ago. The patient has not been vaccinated for COVID. There might be a temporal relationship between the patient's COVID illness and coagulopathy secondary to Coumadin. It sounds like the patient started levofloxacin after he was found to have an INR of 5.0. The patient says that he was recently taking a significant amount of Aleve for back pain related to the nephrostomy tube. He also took 2 doses of aspirin because he was no longer taking Coumadin. The patient says that he was prescribed Eliquis but could not afford the medication therefore took aspirin instead. Discussed the plan of care which includes Protonix IV, endoscopy, monitoring of hemoglobin and possible red blood cell transfusions. We also discussed CODE STATUS, the patient wishes to be DNR. The patient has been considering hospice but has not come to a decision yet. All questions answered to the best of my ability. 05/17 Received two units of RBC yesterday evening for downtrending hemoglobin and lightheadedness. EGD completed today, no pathology found to explain bleeding. Continues on room air. -The patient later decided that he was leaving the hospital against medical advice. I discussed the risks of leaving the hospital which include worsening anemia and another hospitalization. The patient understood the risks, the alexis ent has capacity make this decision. Physical exam Head: Atraumatic, normal inspection. Eyes: normal appearance, no scleral icterus. Neck: full ROM Respiratory: no respiratory distress. Cardiovascular: normal rate and rhythm, S1, S2. GI/Abdominal: soft, nontender, no guarding. : Right nephrostomy tube draining concentrated urine into collection bag. Extremities: full range of motion, nontender. Neurological: CN II-XII intact, intact motor, intact sensation. Psychiatric: normal mood. Skin: warm, normal color Discharge diagnosis: Acute on chronic anemia Time Spent with Patient Time attestation: Total time spent providing and/or coordinating discharge services: EXAM Constitutional Vitals: Temp Pulse Resp BP Pulse Ox 98.8 F 75 18 127/91 97 05/17/21 16:02 05/17/21 15:00 05/17/21 16:02 05/17/21 16:02 05/17/21 15:00 Discharge Data Data Completed and Pending Labs on day of discharge: Labs from last 24 hours 05/17/21 05/17/21 05/17/21 13:30 06:00 06:00 WBC RBC Hgb 10.8 L 10.4 L Hct MCV MCH MCHC RDW Plt Count MPV Neut % (Auto) Lymph % (Auto) [place] % (Auto) Eos % (Auto) Baso % (Auto) Lymph # (Auto) [place] # (Auto) Eos # (Auto) Baso # (Auto) Absolute Neutrophils PT INR Sodium 132 L Potassium 3.9 Chloride 98 Carbon Dioxide 23 Anion Gap 11.0 BUN 19 Creatinine 1.3 H GFR Calculation 52 Glucose 87 Uric Acid 7.7 Calcium 8.7 Phosphorus 2.5 Magnesium 1.9 Total Bilirubin 1.0 Direct Bilirubin 0.2 GGT 34 AST 17 ALT 16 Alkaline Phosphatase 103 Lactate Dehydrogenase 232 H Total Protein 5.9 Albumin 2.8 L Globulin 3.1 Albumin/Globulin Ratio 0.9 L Triglycerides 103 Urine Color Urine Appearance Urine pH Ur Specific [place] Urine Protein Urine Glucose (UA) Urine Ketones Urine Occult Blood Urine Nitrate Urine Bilirubin Urine Urobilinogen Ur Leukocyte Esterase Urine RBC Urine WBC Ur Squamous Epith Cells Urine Bacteria Hyaline Casts Urine Mucus Ur Culture Indicated? 05/17/21 05/17/21 05/16/21 06:00 06:00 19:38 WBC 9.6 RBC 3.53 L Hgb 10.2 L Hct 30.9 L MCV 87.5 MCH 28.9 MCHC 33.0 RDW 15.9 H Plt Count 330 MPV 9.6 Neut % (Auto) 77.9 Lymph % (Auto) 12.8 L [place] % (Auto) 8.4 Eos % (Auto) 0.5 Baso % (Auto) 0.4 Lymph # (Auto) 1.23 L [place] # (Auto) 0.81 Eos # (Auto) 0.05 Baso # (Auto) 0.04 Absolute Neutrophils 7.47 PT 16.9 H INR 1.3 H Sodium Potassium Chloride Carbon Dioxide Anion Gap BUN Creatinine GFR Calculation Glucose Uric Acid Calcium Phosphorus Magnesium 1.9 Total Bilirubin Direct Bilirubin GGT AST ALT Alkaline Phosphatase Lactate Dehydrogenase Total Protein Albumin Globulin Albumin/Globulin Ratio Triglycerides Urine Color Urine Appearance Urine pH Ur Specific [place] Urine Protein Urine Glucose (UA) Urine Ketones Urine Occult Blood Urine Nitrate Urine Bilirubin Urine Urobilinogen Ur Leukocyte Esterase Urine RBC Urine WBC Ur Squamous Epith Cells Urine Bacteria Hyaline Casts Urine Mucus Ur Culture Indicated? 05/16/21 05/16/21 19:38 18:55 WBC RBC Hgb 8.2 L Hct MCV MCH MCHC RDW Plt Count MPV Neut % (Auto) Lymph % (Auto) [place] % (Auto) Eos % (Auto) Baso % (Auto) Lymph # (Auto) [place] # (Auto) Eos # (Auto) Baso # (Auto) Absolute Neutrophils PT INR Sodium Potassium Chloride Carbon Dioxide Anion Gap BUN Creatinine GFR Calculation Glucose Uric Acid Calcium Phosphorus Magnesium Total Bilirubin Direct Bilirubin GGT AST ALT Alkaline Phosphatase Lactate Dehydrogenase Total Protein Albumin Globulin Albumin/Globulin Ratio Triglycerides Urine Color Yellow Urine Appearance Clear Urine pH 7.5 Ur Specific [place] 1.020 Urine Protein 30 mg/dl A Urine Glucose (UA) Negative Urine Ketones Negative Urine Occult Blood Negative Urine Nitrate Negative Urine Bilirubin Negative Urine Urobilinogen Normal Ur Leukocyte Esterase Negative Urine RBC 1 Urine WBC 2 Ur Squamous Epith Cells < 1 Urine Bacteria None Hyaline Casts 8 H Urine Mucus Mod A Ur Culture Indicated? No Preliminary micro results at discharge 05/16/21 15:04 Blood Culture - Preliminary Blood 05/16/21 14:53 Blood Culture - Preliminary Blood Discharge Plan Patient/Caregiver Discharge Instructions Prescriptions: No Action magnesium oxide 400 MG tablet 400 mg PO BID Qty: 30 0RF digoxin 125 MCG tablet 125 mcg PO DAILY@1400 Qty: 30 0RF warfarin [Coumadin] 5 MG tablet 5 mg PO DAILY Qty: 30 0RF Label Comments: Stopped 6 days ago, 05/11/21 chlorthalidone 25 mg Tablet 25 mg PO QDAY 0RF spironolactone 25 mg Tablet 25 mg PO QDAY 0RF atorvastatin 80 mg tablet 1 tab PO DAILY 0RF metoprolol tartrate 25 mg tablet 1 tab PO QDAY 0RF Aspirin Childrens 81 mg PO DAILY 0RF levofloxacin 500 mg tablet 500 mg PO Q24H 14 Days Qty: 14 0RF Label Comments: started 5 days ago Rx Instructions: Monitor INR closely while on Levaquin. Take for 14 days Follow Up Plan Follow up with: Danae Cerna MD [Primary Care Provider] - Patient Disposition: Left Against Medical Advice QUALITY VTE Deep Vein Thrombosis/Pulmonary Embolism Present on Admission: No
[2021-05-17] MEDS: 0.9 % SODIUM CHLORIDE 1,000 ML IV SCH ×2 (18:09→23:30)
[2021-05-17] MEDS: MAGNESIUM OXIDE 400 MG TABLET PO SCH (20:44)
[2021-05-17] MEDS ORDERED: METOPROLOL TARTRATE 25 MG TABLET PO ONE (21:23)
[2021-05-17] MEDS ORDERED: HALOPERIDOL LACTATE 5 MG/ML VIAL IV PRN (22:22)
[2021-05-17] MEDS: HYDROcodone/APAP 5/325MG TABLET PO PRN (23:30)
[2021-05-18] MEDS: METOPROLOL TARTRATE 5 MG/5 ML VIAL IV SCH (00:31)
[2021-05-18] MEDS: 0.9 % SODIUM CHLORIDE 10 ML SYRINGE IV SCH (05:09)
[2021-05-18] MEDS: HYDROcodone/APAP 5/325MG TABLET PO PRN ×2 (05:24→10:13)
[2021-05-18 06:40] LABS: INR 1.2 (0.9-1.1); Prothrombin Time 16.3 sec (11.9-14.5)
[2021-05-18 06:49] LABS: ALT/SGPT 13 U/L (<40); AST/SGOT 14 U/L (<40); Albumin 2.6 gm/dL (3.2-5.2); Albumin/Globulin Ratio 0.8 (1.0-2.3); Alkaline Phosphatase 102 U/L (39-117); Bilirubin,Direct < 0.2 mg/dL (0-0.3); Bilirubin,Total 0.5 mg/dL (0.1-1.0); Blood Urea Nitrogen 20 mg/dL (8-23); Calcium 8.6 mg/dL (8.6-10.4); Carbon Dioxide 24 mmol/L (22-30); Chloride 102 mmol/L (96-108); Globulin 3.1 gm/dL (2.2-3.7); Glomerular Filtration Rate 48; Glucose 95 mg/dL (70-105); Lactate Dehydrogenase 232 U/L (135-225); Phosphorous 2.9 mg/dL (2.5-4.5); Triglycerides 76 mg/dL (<150); Uric Acid 6.9 mg/dL (2.5-8.0)
[2021-05-18] MEDS: PANTOPRAZOLE 40 MG VIAL IV SCH (07:19)
[2021-05-18 08:44] LABS: Basophils # (Auto) 0.03 K/mcL (0.00-0.30); Basophils % (Auto) 0.3 % (0.0-2.0); Eosinophils # (Auto) 0.08 K/mcL (0.00-0.70); Eosinophils % (Auto) 0.8 % (0.0-7.0); Hematocrit 31.4 % (40.1-51.0); Hemoglobin 10.1 g/dL (13.7-17.5); Lymphocytes % (Auto) 15.4 % (15.5-49.0); Mean Cell Volume 88.5 fL (80.0-100.0); Mean Corpuscular HGB Conc 32.2 g/dL (31.0-36.0); Mean Platelet Volume 9.8 fL (7.4-10.4); Monocytes # (Auto) 0.95 K/mcL (0.10-0.90); Monocytes % (Auto) 9.8 % (1.0-12.0); Neutrophils % (Auto) 73.7 % (38.0-78.0); Platelet Count 344 K/mcL (140-440); RBC 3.55 M/mcL (4.63-6.08); Red Cell Distribution Width 16.1 % (11.5-14.5); WBC 9.7 K/mcL (4.5-11.0)
[2021-05-18] MEDS ORDERED: ATORVASTATIN 40 MG TABLET PO SCH (09:00)
[2021-05-18] MEDS ORDERED: METOPROLOL TARTRATE 25 MG TABLET PO SCH (09:00)
[2021-05-18] MEDS: LEVOFLOXACIN 750 MG/150 ML BAG IV SCH (10:12)
[2021-05-18] MEDS: MAGNESIUM OXIDE 400 MG TABLET PO SCH (10:13)
[2021-05-18] MEDS: DOCUSATE SODIUM 100 MG CAPSULE PO SCH (10:14)
--- NOTE | 2021-05-18 10:30 | Discharge Summary ---
Discharge Provider Provider Patient information: Note initiated : 05/18/21 at 10:26 am Service Date, if different from initiated Date: [] Patient: Sky Christensen 75 y/o M admitted on 05/16/21 for Dark stools. Chief Complaint: [] Date of admission: 05/16/21 18:47 Discharge date: 05/18/21 Primary care physician: Danae Cerna Consults: 05/16/21 Consult to Physician [CONS] Stat Comment: Consulting Provider: Gabriel Carreon Reason For Exam: Physician to Consult Consult to Physician [CONS] Stat Comment: Consulting Provider: Georgi Gray Reason For Exam: Physician to Consult 05/16/21 19:19 Consult to Physician [CONS] Stat Comment: Consulting Provider: Georgi Gray Reason For Exam: Physician to Consult Discharge Meds Discharge Medications Home Medications digoxin 125 mcg (0.125 mg) tablet 125 mcg PO DAILY@1400 #30 tab 11/03/16 [Rx Confirmed 05/16/21 Last Taken 05/16/21 14:00] magnesium oxide 400 mg (241.3 mg magnesium) tablet 400 mg PO BID #30 tab 11/03/16 [Rx Confirmed 05/16/21 Last Taken 05/16/21 09:00] levofloxacin 500 mg tablet 500 mg PO Q24H 14 Days #14 tab 05/08/21 [Rx Confirmed 05/16/21 Last Taken 05/16/21 09:00] atorvastatin 80 mg tablet 1 tab PO DAILY 05/16/21 [History Confirmed 05/16/21 Last Taken 05/16/21 15:30] acetaminophen 325 mg tablet (Tylenol) 650 mg PO Q6HP PRN #30 tab 05/18/21 [Rx Last Taken Unknown] metoprolol tartrate 25 mg tablet 25 mg PO BID #60 tab 05/18/21 [Rx Last Taken Unknown] COURSE Hospital Course Hospital course: Mr. Christensen is a 75 year old male atrial fibrillation anticoagulated with Coumadin, CAD, HFrEF, diastolic dysfunction, CKD 3a, bladder cancer complicated by right hydronephrosis s/p recent nephrostomy tube placement who presented to the emergency department for dark tarry stools for about 5 days. The patient was recently started on levofloxacin for UTI, urine culture grew Enterobacter cloacae sensitive to levofloxacin. On 05/08/2021 the patient was found to have an INR of 5.0 and told to hold Coumadin which he did. The patient was seen by urology in clinic today and referred to the emergency department due to concerns that levofloxacin may interact with Coumadin causing elevation of INR. Additionally, the patient has been feeling lightheaded recently and experiencing chills and night sweats. In the emergency department the patient had 9.5, down 1013.1 on 05/08/2021 and an INR of 1.2. The patient had leukocytosis of 14.4. His renal function was stable with a creatinine of 1.4. Additional testing with Tatiana rapid antigen was positive for Covid. The patient says that his Covid type symptoms of lightheadedness, fatigue, chills and sweats started about 7 days ago. The patient has not been vaccinated for COVID. There might be a temporal relationship between the patient's COVID illness and coagulopathy secondary to Coumadin. It sounds like the patient started levofloxacin after he was found to have an INR of 5.0. The patient says that he was recently taking a significant amount of Aleve for back pain related to the nephrostomy tube. He also took 2 doses of aspirin because he was no longer taking Coumadin. The patient says that he was prescribed Eliquis but could not afford the medication therefore took aspirin instead. Discussed the plan of care which includes Protonix IV, endoscopy, monitoring of hemoglobin and possible red blood cell transfusions. We also discussed CODE STATUS, the patient wishes to be DNR. The patient has been considering hospice but has not come to a decision yet. All questions answered to the best of my ability. 05/17 Received two units of RBC yesterday evening for downtrending hemoglobin and lightheadedness. EGD completed today, no pathology found to explain bleeding. Continues on room air. The patient later decided to leave against medical advice however his daughter convinced him to stay the night. 05/18 The patient feels well today. Hemoglobin 10.1, no bowel movement since admission. Discussed a CT scan to evaluate for a retroperitoneal hematoma that may be associated with renal malignancy in the setting of recent supratherapeutic INR as the workup so far was negative for a cause of acute anemia. The patient declined further workup, wanted to be discharged. Discharged to home, held Coumadin at discharge. Also held Chlorthalidone and Spironolactone as blood pressure was stable off those medications. Increased Lopressor to 25 mg BID, previously was once a day. Follow up with PCP for repeat of hemoglobin. The patient is considering hospice at home. Physical exam Head: Atraumatic, normal inspection. Eyes: normal appearance, no scleral icterus. Neck: full ROM Respiratory: no respiratory distress. Cardiovascular: normal rate and rhythm, S1, S2. GI/Abdominal: soft, nontender, no guarding. : Right nephrostomy tube draining concentrated urine into collection bag. Extremities: full range of motion, nontender. Neurological: CN II-XII intact, intact motor, intact sensation. Psychiatric: normal mood. Skin: warm, normal color Discharge diagnosis: Acute anemia of uncertain cause Time Spent with Patient Time attestation: Total time spent providing and/or coordinating discharge services: EXAM Constitutional Vitals: Temp Pulse Resp BP Pulse Ox 98.6 F 78 16 128/57 98 05/18/21 07:25 05/18/21 07:25 05/18/21 07:25 05/18/21 07:25 05/18/21 07:25 Discharge Data Data Completed and Pending Labs on day of discharge: Labs from last 24 hours 05/18/21 05/18/21 05/18/21 05:06 05:06 05:06 WBC 9.7 RBC 3.55 L Hgb 10.1 L Hct 31.4 L MCV 88.5 MCH 28.5 MCHC 32.2 RDW 16.1 H Plt Count 344 MPV 9.8 Neut % (Auto) 73.7 Lymph % (Auto) 15.4 L [place] % (Auto) 9.8 Eos % (Auto) 0.8 Baso % (Auto) 0.3 Lymph # (Auto) 1.50 [place] # (Auto) 0.95 H Eos # (Auto) 0.08 Baso # (Auto) 0.03 Absolute Neutrophils 7.15 PT 16.3 H INR 1.2 H Sodium 137 Potassium 3.7 Chloride 102 Carbon Dioxide 24 Anion Gap 11.0 BUN 20 Creatinine 1.4 H GFR Calculation 48 Glucose 95 Uric Acid 6.9 Calcium 8.6 Phosphorus 2.9 Magnesium 2.0 Total Bilirubin 0.5 Direct Bilirubin < 0.2 GGT 45 AST 14 ALT 13 Alkaline Phosphatase 102 Lactate Dehydrogenase 232 H Total Protein 5.7 L Albumin 2.6 L Globulin 3.1 Albumin/Globulin Ratio 0.8 L Triglycerides 76 05/17/21 13:30 WBC RBC Hgb 10.8 L Hct MCV MCH MCHC RDW Plt Count MPV Neut % (Auto) Lymph % (Auto) [place] % (Auto) Eos % (Auto) Baso % (Auto) Lymph # (Auto) [place] # (Auto) Eos # (Auto) Baso # (Auto) Absolute Neutrophils PT INR Sodium Potassium Chloride Carbon Dioxide Anion Gap BUN Creatinine GFR Calculation Glucose Uric Acid Calcium Phosphorus Magnesium Total Bilirubin Direct Bilirubin GGT AST ALT Alkaline Phosphatase Lactate Dehydrogenase Total Protein Albumin Globulin Albumin/Globulin Ratio Triglycerides Preliminary micro results at discharge 05/16/21 15:04 Blood Culture - Preliminary Blood 05/16/21 14:53 Blood Culture - Preliminary Blood Discharge Plan Patient/Caregiver Discharge Instructions Activity: increase activity as tolerated Diet: Regular Diet Prescriptions: New metoprolol tartrate 25 mg Tablet 25 mg PO BID Qty: 60 5RF acetaminophen [Tylenol] 325 mg Tablet 650 mg PO Q6HP PRN (Reason: Per Pain Protocol/Fever > 101) Qty: 30 0RF Continued magnesium oxide 400 MG tablet 400 mg PO BID Qty: 30 0RF digoxin 125 MCG tablet 125 mcg PO DAILY@1400 Qty: 30 0RF atorvastatin 80 mg tablet 1 tab PO DAILY 0RF levofloxacin 500 mg tablet 500 mg PO Q24H 14 Days Qty: 14 0RF Label Comments: started 5 days ago Rx Instructions: Monitor INR closely while on Levaquin. Take for 14 days Discontinued warfarin [Coumadin] 5 MG tablet 5 mg PO DAILY Qty: 30 0RF Label Comments: Stopped 6 days ago, 05/11/21 chlorthalidone 25 mg Tablet 25 mg PO QDAY 0RF spironolactone 25 mg Tablet 25 mg PO QDAY 0RF metoprolol tartrate 25 mg tablet 1 tab PO QDAY 0RF Aspirin Childrens 81 mg PO DAILY 0RF Follow Up Plan Follow up with: Danae Cerna MD [Primary Care Provider] - Patient Disposition: Home, Self-Care Overall status at discharge: patient is progressing back to baseline Discharge Orders: Discharge Order (Routine); Ordered 05/18/21 Ordered By: Gabriel VINCENT VTE Deep Vein Thrombosis/Pulmonary Embolism Present on Admission: No
[2021-05-18] MEDS: 0.9 % SODIUM CHLORIDE 1,000 ML IV SCH (12:28)
--- NOTE | 2021-05-19 20:08 | EKG ---
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
--- NOTE | 2021-05-21 16:02 | EGD Procedure Note ---
Date of procedure 05/17/2021 PREOPERATIVE DIAGNOSIS: Upper gastrointestinal bleeding with melena. POSTOPERATIVE DIAGNOSIS: Upper gastrointestinal bleeding with melena. PROCEDURE: Esophagogastroduodenoscopy. SURGEON: Georgi Gray M.D. FINDINGS: Normal esophagus, stomach, and duodenum extending to the fourth portion of the duodenum. No old blood noted. DESCRIPTION OF PROCEDURE: Under general anesthesia, the patient turned to the left lateral decubitus position. Timeout procedure was carried out as per protocol. Bite block was placed. Scope was introduced through the bite block into the retropharynx and esophagus. Esophagus was normal throughout its length. There were no vascular lesions. There was no evidence of peristaltic abnormality. GE junction was unremarkable. The gastric fundus, body, and antrum were normal. There was no inflammation, easy friability, erosions, or ulcerations noted. Pylorus was normal and opened appropriately. There was no deformity of the pylorus. There was no channel ulcer. First, second and third portion of the duodenum were normal. There was no blood noted out to the fourth portion of the duodenum. The patient tolerated the procedure well. Scope was removed. He was awakened and transferred to the intensive care unit in satisfactory condition. LCS:darian Job ID: [id number] Doc ID: [id number] Georgi Gray M.D. MTDD
== END 2021-05-18 13:15 | disposition left against medical advice (07) | DRG 811 ==
LOC: ED 14:39 → ICU 18:46 → MEDSUR 05-17 18:05
PROVIDERS: ADMIT Internal Medicine; ATTEND Internal Medicine